=== PATIENT | male | born 1990 | race Two or more races ===

== ENCOUNTER 2019-11-23 17:53 | Emergency (ER) | payer MEDICAID ==
[2019-11-23] MEDS ORDERED: NORMAL SALINE 1000 ML 1,000 ML IV PRN (18:10)
[2019-11-23] MEDS ORDERED: KETOROLAC TROMETHAMINE 60 MG/2 ML SDV IM ONE (18:10)
--- NOTE | 2019-11-23 18:20 | ER Document Report ---
ED Medical Screen (RME) - General Chief Complaint: Possible Kidney Stone Stated Complaint: POSSIBLE KIDNEY STONE Time Seen by Provider: 11/23/19 18:10 Mode of Arrival: Ambulatory Information source: Patient Notes: This 29-year-old male with a history of kidney stones. He presents to the emergency room today stating that he feels as though he is having the same thing. I greeted and performed a rapid initial assessment of this patient. Comprehensive ED assessment and evaluation of the patient, analysis of test results and completion of the medical decision making process will be conducted by additional ED providers. - Related Data Allergies/Adverse Reactions: hydrocodone Allergy (Verified 11/23/19 18:10) ibuprofen Allergy (Verified 11/23/19 18:10) meloxicam Allergy (Verified 11/23/19 18:10) Physical Exam - Vital signs Vitals: Temp Pulse Resp BP Pulse Ox 98.1 F 101 H 18 161/74 H 98 11/23/19 17:58 11/23/19 17:58 11/23/19 17:58 11/23/19 17:58 11/23/19 17:58 Course - Vital Signs Vital signs: Temp Pulse Resp BP Pulse Ox 98.1 F 101 H 18 161/74 H 98 11/23/19 17:58 11/23/19 17:58 11/23/19 17:58 11/23/19 17:58 11/23/19 17:58
[2019-11-23] MEDS ORDERED: KETOROLAC TROMETHAMINE 60 MG/2 ML SDV IV ONE (18:21)
[2019-11-23 18:42] LABS: ABSOLUTE BASOPHILS # (AUTO) 0.1 10^3/uL (0.0-0.2); ABSOLUTE EOSINOPHILS # (AUTO) 0.2 10^3/uL (0.0-0.6); ABSOLUTE LYMPHOCYTES (AUTO) 2.3 10^3/uL (0.5-4.7); ABSOLUTE MONOCYTES (AUTO) 0.6 10^3/uL (0.1-1.4); ABSOLUTE NEUT (AUTO) 5.1 10^3/uL (1.7-8.2); BASOPHILS % (AUTO) 0.7 % (0-2); EOSINOPHILS % (AUTO) 2.3 % (0-6); HEMATOCRIT 40.7 % (37.9-51.0); HEMOGLOBIN 13.9 g/dL (13.5-17.0); LYMPHOCYTES % (AUTO) 27.9 % (13-45); MEAN CORPUSCULAR HEMOGLOBIN 30.5 pg (27.0-33.4); MEAN CORPUSCULAR HGB CONC 34.2 g/dL (32.0-36.0); MEAN CORPUSCULAR VOLUME 89 fl (80-97); MONOCYTES % (AUTO) 7.5 % (3-13); PLATELET COUNT 385 10^3/uL (150-450); RED BLOOD COUNT 4.55 10^6/uL (4.35-5.55); RED CELL DISTRIBUTION WIDTH 13.5 % (11.5-14.0); SEGMENTED NEUTROPHILS % (AUTO) 61.6 % (42-78); TOTAL CELLS COUNTED % (AUTO) 100 %; WHITE BLOOD COUNT 8.2 10^3/uL (4.0-10.5)
[2019-11-23 18:44] LABS: APPEARANCE,URINE CLEAR; BILIRUBIN,URINE NEGATIVE (NEGATIVE); COLOR,URINE YELLOW; GLUCOSE, URINE NEGATIVE (NEGATIVE); KETONES,URINE NEGATIVE (NEGATIVE); LEUKOCYTE ESTERASE,URINE NEGATIVE (NEGATIVE); NITRITE,URINE NEGATIVE (NEGATIVE); PROTEIN,URINE NEGATIVE (NEGATIVE)
[2019-11-23 19:00] LABS: ALBUMIN 4.8 g/dL (3.5-5.0); ALKALINE PHOSPHATASE 82 U/L (38-126); ANION GAP 7 (5-19); ASPARTATE AMINO TRANSFERASE 43 U/L (17-59); BILIRUBIN,TOTAL 0.5 mg/dL (0.2-1.3); BLOOD UREA NITROGEN 14 mg/dL (7-20); CARBON DIOXIDE 27 mmol/L (22-30); CHLORIDE 104 mmol/L (98-107); GLUCOSE 109 mg/dL (75-110); POTASSIUM 4.1 mmol/L (3.6-5.0); TOTAL PROTEIN 7.9 g/dL (6.3-8.2)
[2019-11-23] MEDS ORDERED: HYDROMORPHONE HCL INJ/PF 2 MG/ML AMPULE IV ONE (20:07)
--- NOTE | 2019-11-23 20:12 | ER Document Report ---
ED General - General Chief Complaint: Possible Kidney Stone Stated Complaint: POSSIBLE KIDNEY STONE Time Seen by Provider: 11/23/19 18:10 Mode of Arrival: Ambulatory - HPI Notes: Chief complaint: Left flank and abdominal pain HPI: 29-year-old male with prior history of renal stones which have been passed spontaneously most recently about 1 year ago now presenting with recurrence of left flank and left-sided abdominal pain over the last 4 to 5 days. Associated nausea and vomiting. No gross hematuria. No fever or chills. Patient had some Flomax and Zofran on hand at home and had taken these without any improvement. Takes no other regular medications. Allergies as noted above. - Related Data Allergies/Adverse Reactions: hydrocodone Allergy (Verified 11/23/19 18:10) ibuprofen Allergy (Verified 11/23/19 18:10) meloxicam Allergy (Verified 11/23/19 18:10) Home Medications: zoloft, hydroxyzine, oxycodone prn Past Medical History - General Information source: Patient - Social History Smoking Status: Never Smoker Frequency of alcohol use: None Drug Abuse: None Family History: Reviewed & Not Pertinent Patient has homicidal ideation: No Renal/ Medical History: Reports: Hx Kidney Stones Review of Systems - Review of Systems Notes: Constitutional: Negative for fever. HENT: Negative for sore throat. Eyes: Negative for visual changes. Cardiovascular: Negative for chest pain. Respiratory: Negative for shortness of breath. Gastrointestinal: As per HPI. Genitourinary: As per HPI. Musculoskeletal: Negative for back pain. Skin: Negative for rash. Neurological: Negative for headaches, weakness or numbness. 10 point ROS negative except as marked above and in HPI. Physical Exam - Vital signs Vitals: Temp Pulse Resp BP Pulse Ox 98.1 F 101 H 18 161/74 H 98 11/23/19 17:58 11/23/19 17:58 11/23/19 17:58 11/23/19 17:58 11/23/19 17:58 - Notes Notes: GENERAL: Well-developed well-nourished male approximately stated age who appears restless and uncomfortable. SKIN: Good turgor no rashes. HEAD: Normocephalic atraumatic. EYES: PERRLA. EOMI. Conjunctivae and sclerae clear. EARS: CANALS AND TMS CLEAR. NOSE: CLEAR. MOUTH: Moist mucosa. Good dentition. No stridor or edema. No drooling. NECK: Supple. No masses or thyromegaly. No adenopathy. Carotids 2+ without bruits. No JVD. BACK: Symmetrical without tenderness. CHEST: Respirations unlabored. Breath sounds clear and symmetrical. HEART: Regular rhythm. No murmur gallop or rub. ABDOMEN: Soft nontender without masses, organomegaly or rebound. Bowel sounds normally active. No bruits. GENITALIA: Deferred. EXTREMITIES: No edema. No calf tenderness. Cap refill less than 1.5 seconds. Dorsalis pedis and posterior tibial pulses 3+ and symmetrical. NEUROLOGICAL: GCS 15. Alert and oriented x3. Normal gait. Fluent speech. Project Inspector nial nerves II through XII intact. Sensorimotor and cerebellar normal. Normal tone. PSYCHIATRIC: Appropriate affect. Course - Re-evaluation Re-evalutation: 11/23/19 22:13 Clinically this man appeared to have renal colic. He had some blood showing up in his urine. We will get a noncontrast CT and this showed multiple stones of both kidneys although there was no obvious obstructing stone. Based on number of stones present I think it is likely that he is intermittently passing small stones causing his current symptoms with some residual spasm of the ureter. I gave him some IV Dilaudid here with good relief of his pain. His initial response to Toradol was not helpful. I will refer him to urologist give him a work note for 3 days. Suggest that he increase oral fluids. I will write a prescription for some oxycodone for symptomatic use for the next 2 to 3 days. He already has Flomax at home but I explained to him that this is probably not can help his present situation. He may take ibuprofen supplementally. - Vital Signs Vital signs: Temp Pulse Resp BP Pulse Ox 98.1 F 101 H 18 161/74 H 98 11/23/19 18:11 11/23/19 17:58 11/23/19 17:58 11/23/19 17:58 11/23/19 17:58 - Laboratory Result Diagrams: 11/23/19 18:25 11/23/19 18:25 Laboratory results interpreted by me: 11/23/19 11/23/19 18:01 18:25 ALT 80 H Urine Blood MODERATE H Urine Urobilinogen 2.0 H Discharge - Discharge Clinical Impression: Nephrolithiasis Condition: Stable Disposition: HOME, SELF-CARE Additional Instructions: Kidney Stone You are passing or have passed a kidney stone. These stones are usually due to increased calcium or uric acid concentrations in your urine. Stones within the kidney itself are not painful. The pain occurs as the stone leaves the kidney to pass down the long tube, called the ureter, leading to the bladd er. If the stone is small, it will usually pass by itself. Most patients can pass the stone at home. You will usually receive medications for pain, nausea or vomiting, and sometimes a medication to assist in passing the kidney stone. However, if the pain is very severe or if vomiting prevents you from taking oral pain medications, you may need to return for further treatment. Drink three or four quarts of fluids per day. You will be given pain medication (if needed) and urine strainers. Strain all your urine to see if the stone passes. If your doctor has asked you to bring the stone in for analysis, return with the stone once it has passed. Return if pain or vomiting become severe, if you develop a high fever, if you are unable to pass your urine, or if other unusual symptoms occur. Increase oral fluids. Take ibuprofen initially for pain. If this is unrelieved you may use the oxycodone prescription provided. Do not drive or operate machinery while taking this medication. Return here as needed for new or worsening symptoms: Pain that is worsening or unimproved Uncontrolled vomiting High fever or shaking chills Overall worsening He will be provided the name and telephone number of a urologist for follow-up and should see them in the next 3 to 5 days. Prescriptions: Oxycodone HCl/Acetaminophen [Percocet 5-325 mg Tablet] 2 tab PO ASDIR PRN #15 tab PRN Reason: Forms: Return to Work Referrals: DEVANG MCCRARY MD [NO LOCAL MD] - Follow up as needed
[2019-11-23 20:30] LABS: URINE AMPHETAMINES SCREEN NEGATIVE; URINE BARBITURATES SCREEN NEGATIVE; URINE BENZODIAZEPINES SCREEN NEGATIVE; URINE COCAINE SCREEN NEGATIVE; URINE MARIJUANA (THC) SCREEN NEGATIVE; URINE METHADONE SCREEN NEGATIVE; URINE PHENCYCLIDINE SCREEN NEGATIVE
--- NOTE | 2019-11-23 20:50 | RADIOLOGY REPORT (SQ) ---
EXAM DESCRIPTION: CT ABDOMEN PELVIS WITHOUT IV CONTRAST COMPLETED DATE/TME: 11/23/2019 20:07 CLINICAL HISTORY: 29 years, Male, left flank pain COMPARISON: None. TECHNIQUE: Noncontrast CT abdomen/pelvis was acquired. Coronal and sagittal reformations were created. Images stored on PACS. All CT scanners at this facility use dose modulation, iterative reconstruction, and/or weight based dosing when appropriate to reduce radiation dose to as low as reasonably achievable (ALARA). [facility]: Dose Right [facility]: CareDose [facility]: Dose Right [facility]: Teradose 4D [facility]: [employer] LIMITATIONS: None. FINDINGS: Limited evaluation of the lower chest reveals clear lung bases. Liver, spleen, pancreas, and both adrenal glands appear normal. Gallstone is noted about the gallbladder fundus. A few tiny calculi are noted about both kidneys. Both kidneys are otherwise normal in their noncontrast appearance. No hydronephrosis or hydroureter. The urinary bladder is collapsed, thus its evaluation is limited. Small fat-containing left inguinal hernia is evident. Small and large bowel are normal in caliber. No evidence of bowel obstruction. Appendix is normal. Vascular structures are normal in their noncontrast appearance. No suspicious lymphadenopathy or drainable fluid collections. Bone windows show no destructive osseous lesions. IMPRESSION: No acute abnormality within the abdomen or pelvis. Nonobstructive bilateral nephrolithiasis. TECHNICAL DOCUMENTATION: Quality ID # [id number]: Final reports with documentation of one or more dose reduction techniques (e.g., Automated exposure control, adjustment of the mA and/or kV according to patient size, use of iterative reconstruction technique) copyright 2011 [employer]- All Rights Reserved
[2019-11-23] MEDS ORDERED: OXYCODONE-ACETAMINOPHEN 5-325 MG TABLET PO ONE (22:38)
[2019-11-23 23:29] VITALS: BP 148/98
== END 2019-11-23 23:29 | disposition home or self-care (01) ==
LOC: ER 17:53
DX: N20.0 Calculus of kidney (principal); R10.9 Unspecified abdominal pain; R11.2 Nausea with vomiting, unspecified; Z88.8 Allergy status to other drugs, medicaments and biological substances; Z79.899 Other long term (current) drug therapy
CPT/HCPCS: 99284; 96372; 96361; 96374; 36415; 85025; 80053; 81001; 80307; 74176; J1885; J1170; J7030